=== PATIENT | female | born 1930 | race Caucasian/White ===

== ENCOUNTER 2016-08-12 08:07 | Observation (INO) | payer MEDICARE, MEDICAID ==
[~2016-08-12] VITALS: Ht 180.3 cm; Wt 88.5 kg
[~2016-08-12 08:07] MED LIST: AMAN100C12 PO; AML5T PO; BENA20TA PO; CAR25T PO; FURO20TA PO; TRAZ100T2 PO
[2016-08-12 09:33] LABS: Basophils # (auto) 0 uL; Basophils % (auto) 0.2 % (0.0-2.0); Eosinophils # (auto) 0.2 uL; Eosinophils % (auto) 2.7 % (0.0-7.0); Hematocrit 42.9 % (36.0-46.0); Hemoglobin 13.9 g/dL (12.2-16.2); Lymphocytes # (auto) 1.5 uL; Lymphocytes % (auto) 26.9 % (10.0-50.0); Mean Corpuscular Hemoglobin 29.7 pg (28.0-32.0); Mean Corpuscular Hgb Conc. 32.5 g/dL (32.0-36.0); Mean Corpuscular Volume 91.6 fL (80.0-100.0); Mean Platelet Volume 9.2 fL (7.4-10.4); Monocytes # (auto) 0.6 uL; Monocytes % (auto) 10.5 % (0.0-12.0); Neutrophils # (auto) 3.3 uL; Neutrophils % (auto) 59.7 % (37.0-80.0); Platelet Count (auto) 255 10^3/uL (140-450); Red Cell Distribution Width 13.6 % (11.6-16.0); White Blood Cell 5.6 10^3/uL (4.4-10.8)
[2016-08-12] MEDS ORDERED: SODIUM CHLORIDE 0.9% 1,000 ML IV ONE (09:33)
[2016-08-12] MEDS ORDERED: IPRIH INH (09:39)
[2016-08-12] MEDS ORDERED: GEMF600T3 PO (09:39)
[2016-08-12] MEDS ORDERED: RANITAB8 PO (09:39)
[2016-08-12] MEDS ORDERED: MULTTAB99 GT (09:39)
[2016-08-12] MEDS ORDERED: PANTOPRAZOLE SODIUM 40 MG/10 ML VIAL IV ONE (09:41)
[2016-08-12] MEDS ORDERED: PANTOPRAZOLE SODIUM 80 MG in SODIUM CHL 0.9% 60 ML IV ONE (09:45)
[2016-08-12 10:00] LABS: Albumin 3.5 g/dL (3.4-5.0); Calcium 8.4 mg/dL (8.5-10.1); Potassium 3.8 mmol/L (3.5-5.1)
[2016-08-12 10:02] LABS: Total Protein 6.5 g/dL (6.4-8.2)
[2016-08-12 10:26] LABS: INR 1.05 (0.9-1.15); Prothrombin Time 10.8 sec (9.37-12.3)
[2016-08-12] MEDS ORDERED: MORPHINE SULF INJ 2 MG/ML SYRINGE 1ML IV ONE (11:15)
[2016-08-12] MEDS ORDERED: CARBIDOPA W LEVODOPA 25/250mg TABLET PO ONE ×2 (11:15→18:45)
[2016-08-12] MEDS ORDERED: ONDANSETRON HCL 4 MG/2 ML VIAL IV ONE (11:15)
[2016-08-12 13:07] LABS: B-Type Natriuretic Peptide 37.19 pg/mL (0-100)
[2016-08-12 20:30] VITALS: BP 142/75
== END 2016-08-12 21:03 | disposition home or self-care (01) | DRG 379 ==
LOC: EDBD 08:07 → ER 08:10 → OVERFLOW 16:49 → ER 21:03
PROVIDERS: ADMIT Emergency Medicine; ATTEND Emergency Medicine
DX: K92.2 Gastrointestinal hemorrhage, unspecified (principal); K80.20 Calculus of gallbladder without cholecystitis without obstruction; I11.0 Hypertensive heart disease with heart failure; I50.9 Heart failure, unspecified; J44.9 Chronic obstructive pulmonary disease, unspecified; E78.5 Hyperlipidemia, unspecified; G20 Parkinson's disease; Z88.0 Allergy status to penicillin
CPT/HCPCS: 36415; 71010; 74176; 80053; 83880; 84484; 85025; 85610; 93005; 96365; 96375; C9113; G0378; J2405

== ENCOUNTER 2017-10-21 19:08 | Inpatient (IN) | payer MEDICARE, MEDICAID ==
[~2017-10-21] VITALS: Ht 157.5 cm; Wt 56.2 kg
[~2017-10-21 19:08] MED LIST changes: +GEMF600T3 PO; +IPRIH INH; +MULTTAB99 GT; +RANITAB8 PO
[2017-10-21 20:03] LABS: Basophils # (auto) 0 uL; Basophils % (auto) 0.6 % (0.0-2.0); Eosinophils # (auto) 0.1 uL; Eosinophils % (auto) 3.4 % (0.0-7.0); Hematocrit 38.1 % (36.0-46.0); Hemoglobin 12.8 g/dL (12.2-16.2); Lymphocytes # (auto) 1.6 uL; Lymphocytes % (auto) 43.8 % (10.0-50.0); Mean Corpuscular Hemoglobin 30.3 pg (28.0-32.0); Mean Corpuscular Hgb Conc. 33.6 g/dL (32.0-36.0); Mean Corpuscular Volume 90.1 fL (80.0-100.0); Monocytes # (auto) 0.4 uL; Monocytes % (auto) 11.8 % (0.0-12.0); Neutrophils # (auto) 1.5 uL; Neutrophils % (auto) 40.4 % (37.0-80.0); Nucleated Red Blood Cells % 0.1 %; Platelet Count (auto) 203 10^3/uL (140-450); Red Blood Cells 4.23 10^6/uL (4.0-5.20); Red Cell Distribution Width 13.6 % (11.8-14.3); White Blood Cell 3.6 10^3/uL (4.4-10.8)
[2017-10-21 20:33] LABS: Alanine Aminotransferase < 6 U/L (13-56); Albumin 3.3 g/dL (3.4-5.0); Alkaline Phosphatase 102 U/L (45-117); Anion Gap 7 (5-15); Aspartate Aminotransferase 9 U/L (15-37); BUN/Creatinine Ratio 14.7; Bilirubin, Total 0.9 mg/dL (0.2-1.0); Blood Urea Nitrogen 11 mg/dL (7-18); Calcium 8.9 mg/dL (8.5-10.1); Carbon Dioxide 29 mmol/L (21-32); Chloride 105 mmol/L (98-107); GFR African American 95 mL/min; GFR Non-African American 78 mL/min; Glucose 99 mg/dL (74-106); Magnesium 2.4 mg/dL (1.6-2.6); Potassium 3.8 mmol/L (3.5-5.1); Sodium 141 mmol/L (136-145)
[2017-10-21] MEDS ORDERED: ACETAMINOPHEN 500 MG TAB PO PRN (23:15)
[2017-10-21] MEDS ORDERED: NITROGLYCERIN 0.4 MG SL TAB SL PRN (23:15)
[2017-10-21] MEDS ORDERED: MORPHINE SULFATE 4 MG/ML SYR/VIAL IV PRN (23:15)
[2017-10-21] MEDS ORDERED: ONDANSETRON HCL 4 MG/2 ML VIAL IV PRN (23:15)
[2017-10-21] MEDS ORDERED: HYDROcodone-ACET 5/325MG TAB PO PRN (23:15)
[2017-10-21] MEDS ORDERED: TEMAZEPAM 15 MG CAP PO PRN (23:15)
[2017-10-22] MEDS ORDERED: LORazepam 2MG/ML-1ML VIAL IV PRN (04:30)
[2017-10-22] MEDS ORDERED: LORazepam 0.5 MG TAB PO PRN (04:30)
[2017-10-22] MEDS ORDERED: traMADol HCL 50 MG TAB PO PRN (04:30)
[2017-10-22 05:22] LABS: Basophils # (auto) 0 uL; Basophils % (auto) 0.5 % (0.0-2.0); Eosinophils # (auto) 0.1 uL; Eosinophils % (auto) 3.1 % (0.0-7.0); Hematocrit 35.6 % (36.0-46.0); Hemoglobin 12.4 g/dL (12.2-16.2); Lymphocytes # (auto) 1.6 uL; Lymphocytes % (auto) 48.4 % (10.0-50.0); Mean Corpuscular Hemoglobin 31.5 pg (28.0-32.0); Mean Corpuscular Hgb Conc. 34.9 g/dL (32.0-36.0); Mean Corpuscular Volume 90.4 fL (80.0-100.0); Monocytes # (auto) 0.4 uL; Monocytes % (auto) 12.5 % (0.0-12.0); Neutrophils # (auto) 1.2 uL; Neutrophils % (auto) 35.5 % (37.0-80.0); Nucleated Red Blood Cells % 0.1 %; Platelet Count (auto) 188 10^3/uL (140-450); Red Blood Cells 3.94 10^6/uL (4.0-5.20); Red Cell Distribution Width 13.9 % (11.8-14.3); White Blood Cell 3.4 10^3/uL (4.4-10.8)
[2017-10-22 05:40] LABS: Calcium 9.1 mg/dL (8.5-10.1); Potassium 3.4 mmol/L (3.5-5.1)
[2017-10-22] MEDS: CARBIDOPA W LEVODOPA 25/100mg TABLET PO SCH ×4 (06:10→21:06)
[2017-10-22] MEDS: BENAZEPRIL HCL 10 MG TAB PO SCH (10:03)
[2017-10-22] MEDS: LEVETIRACETAM 500 MG TAB PO SCH ×2 (10:04→21:07)
[2017-10-22] MEDS: CITALOPRAM HYDROBR 20 MG TAB PO SCH (10:04)
[2017-10-22] MEDS: amLODIPine BESYLATE 5 MG TAB PO SCH (10:04)
[2017-10-22 13:00] VITALS: BP 178/96
[2017-10-22 20:00] VITALS: BP_SYST 100; BP_DIAS 70; BP_DIAS 72
[2017-10-22] MEDS: METOPROLOL TARTRATE 25 MG TAB PO SCH (21:06)
[2017-10-23] VITALS (7 sets, daily range): BP systolic 98–155; BP diastolic 58–93
[2017-10-23] MEDS: CARBIDOPA W LEVODOPA 25/100mg TABLET PO SCH ×2 (05:54→15:25)
[2017-10-23] MEDS: amLODIPine BESYLATE 5 MG TAB PO SCH (09:57)
[2017-10-23] MEDS: BENAZEPRIL HCL 10 MG TAB PO SCH (09:58)
[2017-10-23] MEDS: LEVETIRACETAM 500 MG TAB PO SCH (09:58)
[2017-10-23] MEDS: CITALOPRAM HYDROBR 20 MG TAB PO SCH (10:00)
[2017-10-23] MEDS ORDERED: ASPirin 81 mg TAB PO SCH (10:00)
[2017-10-23] MEDS: METOPROLOL TARTRATE 25 MG TAB PO SCH (10:00)
== END 2017-10-23 19:40 | disposition home or self-care (01) | DRG 206 ==
LOC: EDBD 19:08 → ER 19:08 → TELE 19:09 → TELE-CENTR 10-22 11:00
PROVIDERS: ADMIT Nurse Practitioner Family; ATTEND Family Medicine
DX: M94.0 Chondrocostal junction syndrome [Tietze] (principal); G20 Parkinson's disease; I50.9 Heart failure, unspecified; I11.0 Hypertensive heart disease with heart failure; I25.10 Atherosclerotic heart disease of native coronary artery without angina pectoris; F03.90 Unspecified dementia, unspecified severity, without behavioral disturbance, psychotic disturbance, mood disturbance, and anxiety; R56.9 Unspecified convulsions; J44.9 Chronic obstructive pulmonary disease, unspecified; I44.7 Left bundle-branch block, unspecified; F41.9 Anxiety disorder, unspecified; F32.9 Major depressive disorder, single episode, unspecified; G47.00 Insomnia, unspecified; M19.90 Unspecified osteoarthritis, unspecified site; M06.9 Rheumatoid arthritis, unspecified; Z79.82 Long term (current) use of aspirin; Z80.1 Family history of malignant neoplasm of trachea, bronchus and lung; Z82.49 Family history of ischemic heart disease and other diseases of the circulatory system; Z88.0 Allergy status to penicillin; Z79.899 Other long term (current) drug therapy
CPT/HCPCS: 36415; 71045; 80048; 80053; 83735; 83880; 84484; 85025; 85652; 87081; 93005; 93306